=== PATIENT | female | born 1985 | race Caucasian/White ===

== ENCOUNTER 2019-05-25 19:05 | Emergency (ER) | payer SELFPAY ==
[~2019-05-25] VITALS: Ht 152.4 cm; Wt 55.0 kg
[2019-05-25 19:12] VITALS: BP 127/86
--- NOTE | 2019-05-25 19:23 | NUR ---
PT VERY DISRUPTIVE, CUSSING AND YELLING AT STAFF, ROLLING A CIGARRETTE, DR MEDRANO TO SEES PT AND IS WRITING FOR SCRIPT FOR THE INHALER THAT SHE NEEDS
--- NOTE | 2019-05-25 19:28 | NUR ---
PT CONTINUES YELLING AND CUSSING AND REFUSES TO TAKE RX, DEMANDS ACTUAL INHALER, AWARE THAT WE DO NOT DISPENSE THESE. PT VERY UNRULY SECURITY HAPPENS TO BE IN ER AND ASSIST PT WITH EXIT
== END 2019-05-25 23:40 | disposition home or self-care (01) ==
LOC: ED 19:29
DX: F10.120 Alcohol abuse with intoxication, uncomplicated (principal); Z76.0 Encounter for issue of repeat prescription; J44.9 Chronic obstructive pulmonary disease, unspecified; F17.200 Nicotine dependence, unspecified, uncomplicated
CPT/HCPCS: 99283